=== PATIENT | male | born 1970 | race American Indian/Alaskan Native ===

== ENCOUNTER 2020-10-14 23:05 | Emergency (ER) | payer SELFPAY ==
[2020-10-14] MEDS ORDERED: IBUPROFEN 600 MG TAB PO ONE (23:47)
[2020-10-14] MEDS ORDERED: HYDROcodone/ACETAMINOPHEN 7.5-325MG TAB PO ONE (23:47)
[2020-10-14] MEDS ORDERED: ONDANSETRON 4 MG ODT TAB PO ONE (23:47)
--- NOTE | 2020-10-14 23:49 | Event Note ---
ED Screening Note Date of service: 10/14/20 Time: 23:48 ED Screening Note: Patient is a 50-year-old male with no past medical history presents to the ED with complaint of acute onset persistent severe left shoulder pain with deformity after he slipped off a ladder and fell down about 4 hours ago. Patient states that he is unable to perform any active range of motion of the left arm because of severe left shoulder pain and deformity. Patient denies head or neck injuries, loss of consciousness, dizziness, syncope, seizure, back pain, chest pain or shortness of breath, numbness and tingling or weakness of upper and lower extremities bilaterally, urinary retention, bowel incontinence or saddle paresthesia. This initial assessment/diagnostic orders/clinical plan/treatment(s) is/are subject to change based on patients health status, clinical progression and re- assessment by fellow clinical providers in the ED. Further treatment and workup at subsequent clinical providers discretion. Patient/guardian urged not to elope from the ED as their condition may be serious if not clinically assessed and managed. Initial orders include: Left shoulder x-ray
--- NOTE | 2020-10-15 00:11 | XRay Report ---
LEFT SHOULDER 3 VIEWS INDICATION / CLINICAL INFORMATION: Left shoulder pain - dislocation. COMPARISON: None available. FINDINGS: There is an anterior dislocation of the left glenohumeral joint. There is no appreciable fracture. Signer Name: Erik Elise MD Signed: 10/15/2020 12:06 AM Workstation Name: [id number]
[2020-10-15] MEDS ORDERED: SODIUM CHLORIDE 0.9% 1000 ML 1,000 ML ONE (00:23)
[2020-10-15] MEDS ORDERED: HYDROmorphone 1 MG/1 ML INJ ONE (00:23)
[2020-10-15] MEDS ORDERED: ETOMIDATE 20 MG/10 ML INJ IV ONE ×2 (00:23→00:30)
[2020-10-15] MEDS ORDERED: propofoL 200 MG/20 ML VIAL IV ONE ×2 (00:25→00:30)
[2020-10-15] MEDS ORDERED: SODIUM CHLORIDE 0.9% 1000 ML 1,000 ML IV ONE (00:30)
--- NOTE | 2020-10-15 00:30 | Emergency Department Report ---
Upper Extremity - HPI Chief Complaint: Extremity Injury, Upper Stated Complaint: LT ARM PAIN Time Seen by Provider: 10/15/20 00:15 Upper Extremity: Left Shoulder Occurred When: Today Mechanism: Twist Symptoms: Yes Pain with Movement, Yes Deformity, Yes Limited Range of Movement, No Numbness, No Weakness, No Swelling, No Bruising/Ecchymosis, No Laceration or Abrasion Other History: . . Patient is a 50-year-old male who presents emergency room with complaints of left shoulder pain. Patient states that he has dislocated his shoulder once in the past. Patient states he is having pain 10 out of 10. Patient states the pain is better with rest and worse with movement. Patient states he is not able to move his arm without severe pain. Patient states his symptoms are worsening. Patient states his symptoms started at 5 PM. Patient states he was lifting rocks at work and he twisted and felt a pop in his left shoulder. Patient denies fever or chills. Patient denies any other injuries. Patient denies recent travel. Patient denies recent international travel. Patient denies exposure to the novel coronavirus. Patient denies sick contacts. Patient denies fever and chills. Patient denies cough. Patient denies diarrhea. Patient denies coming in contact with anybody with symptoms of the novel coronavirus. ED Review of Systems ROS: Stated complaint: LT ARM PAIN Other details as noted in HPI Constitutional: denies: chills, fever Eyes: denies: eye pain, eye discharge, vision change ENT: denies: ear pain, throat pain Respiratory: denies: cough, shortness of breath, wheezing Cardiovascular: denies: chest pain, palpitations Endocrine: no symptoms reported Gastrointestinal: denies: abdominal pain, nausea, diarrhea Genitourinary: denies: urgency, dysuria Musculoskeletal: denies: back pain, joint swelling, arthralgia Skin: denies: rash, lesions Neurological: denies: headache, weakness, paresthesias Psychiatric: denies: anxiety, depression Hematological/Lymphatic: denies: easy bleeding, easy bruising ED Past Medical Hx - Past Medical History Previous Medical History?: No - Surgical History Past Surgical History?: No - Family History Family history: no significant - Social History Smoking Status: Never Smoker Substance Use Type: None - Medications Home Medications: Home Medications Medication Instructions Recorded Confirmed Last Taken Type HYDROcodone/APAP 5-325 [[place] 1 each PO Q4HR PRN #10 tablet 10/15/20 Unknown Rx 5/325] Ibuprofen [Motrin 800 MG tab] 800 mg PO Q8HR PRN #20 tablet 10/15/20 Unknown Rx Upper Extremity Exam - Exam General: Vital signs noted. No distress. Alert and acting appropriately. The patient appeared well nourished and normally developed. Vital signs as documented. Head exam is unremarkable. No scleral icterus or corneal arcus noted. Neck is without jugular venous distension, thyromegaly, or carotid bruits. Lungs are clear to auscultation and percussion. Cardiac exam reveals the Rhythm is regular. First and second heart sounds normal. No murmurs, rubs or gallops. Head and Torso: No HEENT Abnormality, No Neck Tenderness, No Chest/Lungs Abnormality, No Abdominal Tenderness, No Back Tenderness Shoulder Exam: Yes Shoulder Tenderness, Yes Shoulder Deformity, No Clavicle Tenderness, No Normal Range of Motion in Shoulder, No AC Joint Tenderness Arm Exam: No Arm/Humerus Tenderness, No Arm Deformity Elbow: No Elbow Tenderness, No Normal Range of Motion in Elbow, No Elbow Deformity Forearm: No Forearm Tenderness, No Forearm Deformity, No Pain with Pronation, No Pain with Supination Wrist: Yes Normal ROM in Wrist, No Wrist Tenderness, No Wrist Deformity, No Snuffbox Tenderness, No Pain with Axial Thumb Compression Hand: Yes Normal ROM in Digit(s), No Hand Tenderness, No Hand Deformity, No Digit Tenderness, No Digit(s) Deformity, No Tendon Dysfunction CMS Exam: No Broken Skin, No Normal Distal Pulses, No Normal Capillary Refill, No Normal Distal Sensation ED Course Vital Signs 10/14/20 10/14/20 10/14/20 23:46 23:47 23:55 Temperature 98.1 F 98.1 F Pulse Rate 76 70 Respiratory 18 20 Rate Blood Pressure Blood Pressure 136/84 [Left] O2 Sat by Pulse 97 94 Oximetry 10/14/20 23:56 Temperature 98.1 F Pulse Rate 70 Respiratory 70 H Rate Blood Pressure 136/84 Blood Pressure [Left] O2 Sat by Pulse 94 Oximetry - Reevaluation(s) Reevaluation #1: Initial evaluation done. I attempted to manipulate the shoulder and the patient is unable to tolerate due to pain and discomfort. Patient will have constipation. Patient agrees to procedures. Consent form signed. 10/15/20 00:18 Reevaluation #2: See procedure notes for moderate sedation and reduction. Patient tolerated procedures well. Patient's vital signs remained stable. Patient answering questions appropriately. Patient placed in a sling. Repeat x-ray ordered. 10/15/20 00:45 Reevaluation #3: Patient answering questions appropriately. Patient states the pain is much better. Patient will be given IV Toradol for anti-inflammatory. Patient agrees with plan of care. Patient is in a sling. 10/15/20 00:55 Reevaluation #4: Patient is complaining of the abdomen pain in his left shoulder. Patient will be given Dilaudid. 10/15/20 01:05 Reevaluation #5: I discussed all results and clinical findings with patient. I discussed plan of care with patient. Patient agrees with plan of care. Patient is stable for discharge. Patient will be discharged home. Patient given discharge instructions. Patient voiced understanding of discharge instructions. 10/15/20 01:12 - Moderate Sedation Indications: fracture/dislocation redu Presedation Evaluation: Patient states oral intake at 3 PM on 10/14/2020 ASA Class: I Mallampati Airway Score: 1 Preparation: awake overnight monitor applied, pulse oximeter, capnometry used, supplemental O2 applied, suction/airway equipment at bedside, IV secured Ketamine: IV Ketamine Dose: 7 Complications: none Patient Tolerated Procedure: well, no complications Additional Comments: Procedure started at 0027 and ended at 0045 - Orthopedic Joint Reduction Joint #1 Consent Obtained: verbal consent, written consent Time Out Performed: Yes Side: left Joint Reduction Location: shoulder Analgesia: moderate sedation Shoulder Technique Used (if applicable): traction/counter-traction Post-Reduction Neuro Exam: intact, no change Post-Reduction Vascular Exam: intact, no change Post Reduction X-Ray Obtained: Yes Post Reduction X-Ray Results: reduced Splint Applied: Yes Patient Tolerated Procedure: well, no complications Additional Comments: Procedure started at 0027 and ended at 0045 ED Medical Decision Making - Radiology Data Radiology results: report reviewed, image reviewed interpreted by me: First left shoulder x-ray: No fracture, soft tissue normal, dislocation noted. No foreign body. Second left shoulder x-ray: Shows no fracture and satisfactory reduction, no foreign body. LEFT SHOULDER 3 VIEWS INDICATION / CLINICAL INFORMATION: Left shoulder pain - dislocation. COMPARISON: None available. FINDINGS: There is an anterior dislocation of the left glenohumeral joint. There is no appreciable fracture. XR shoulder 2+V LT INDICATION: shoulder reduction. COMPARISON: 10/14/2020 x-rays FINDINGS: Previously identified left glenohumeral joint dislocation has been reduced appropriately. There is no appreciable fracture. - Medical Decision Making Patient is a 30-year-old male who presents emergency room with complaints of left shoulder pain and possible dislocation. Patient had a initial shoulder x- ray which showed an anterior dislocation of the humeral head. Patient consented to have moderate sedation and shoulder reduction. Patient had conscious sedation with etomidate. Patient placed in a sling after the procedure. Patient tolerated procedure well. Patient was monitored back to baseline. Patient given Toradol and Dilaudid for pain. Patient stable for discharge. Patient discharged home. - Differential Diagnosis Shoulder pain, shoulder dislocation, fracture, strain, sprain, contusion Critical Care Time: Yes Critical care time in (mins) excluding proc time.: 55 Critical care attestation.: If time is entered above; I have spent that time in minutes in the direct care of this critically ill patient, excluding procedure time. Critical Care Time: 55 minutes ED Disposition Clinical Impression: Shoulder dislocation Qualifiers: Encounter type: initial encounter Laterality: left Qualified Code(s): S43.005A - Unspecified dislocation of left shoulder joint, initial encounter Shoulder pain Qualifiers: Chronicity: acute Laterality: left Qualified Code(s): M25.512 - Pain in left shoulder Disposition: DC-01 TO HOME OR SELFCARE Is pt being admited?: No Does the pt Need Aspirin: No Condition: Stable Instructions: Shoulder Dislocation, Moderate Conscious Sedation, Adult, Care After Additional Instructions: Patient to follow-up with primary care in 2 to 3 days. Patient to follow-up with orthopedist in 2 to 3 days. Patient to remain in sling until cleared by orthopedist. Patient to rest. Patient to increase water. Patient to avoid strenuous exercise or heavy lifting until cleared by orthopedist. Patient to take Tylenol or ibuprofen as needed for pain. Patient to return to the ER if condition worsens, changes or new symptoms arise. Prescriptions: Ibuprofen [Motrin 800 MG tab] 800 mg PO Q8HR PRN #20 tablet PRN Reason: Pain, Moderate (4-6) HYDROcodone/APAP 5-325 [[place] 5/325] 1 each PO Q4HR PRN #10 tablet PRN Reason: Pain Referrals: PRIMARY CAREMD [Primary Care Provider] - 2-3 Days SALONI ANDERSON MD [Staff Physician] - 2-3 Days Time of Disposition: 01:13
[2020-10-15] MEDS ORDERED: KETOROLAC 30 MG/1 ML INJ IV ONE (00:42)
[2020-10-15] MEDS ORDERED: HYDROmorphone 1 MG/1 ML INJ IV ONE (01:03)
--- NOTE | 2020-10-15 01:07 | XRay Report ---
XR shoulder 2+V LT INDICATION: shoulder reduction. COMPARISON: 10/14/2020 x-rays FINDINGS: Previously identified left glenohumeral joint dislocation has been reduced appropriately. There is no appreciable fracture. Signer Name: Erik Elise MD Signed: 10/15/2020 1:03 AM Workstation Name: [id number]
[2020-10-15 01:28] VITALS: BP 121/78
== END 2020-10-15 01:29 | disposition home or self-care (01) ==
LOC: ED 23:05
DX: S43.005A Unspecified dislocation of left shoulder joint, initial encounter (principal); Z79.899 Other long term (current) drug therapy; X50.1XXA Overexertion from prolonged static or awkward postures, initial encounter; Y93.89 Activity, other specified; Y92.89 Other specified places as the place of occurrence of the external cause; Y99.0 Civilian activity done for income or pay
CPT/HCPCS: 23650; 73030; 96365; 96375; 99284; J1170; J1885; J2704; J7030